=== PATIENT | female | born 1940 | race Two or more races ===

== ENCOUNTER 2021-04-10 15:42 | Inpatient (IN) | payer MEDICARE ==
--- NOTE | 2021-04-10 17:38 | ED ---
General Adult HPI - General Chief complaint: Recheck/Abnormal Lab/Rx Stated complaint: Abnormal Labs, Low Hemoglobin Time Seen by Provider: 04/10/21 17:04 Source: patient, RN notes reviewed Mode of arrival: ambulatory Limitations: physical limitation - History of Present Illness Initial comments: 80-year-old female presents to the emergency department accompanied by her daughter for evaluation of low hemoglobin. Patient states she received a phone call from her PCP informing her that her hemoglobin was 6.8 and instructed her to go to the emergency department. Patient states she had a fall resulting in a hip fracture on March 12. States she surgery at [facility] where she required 3 units of blood prior to surgery. Denies any complications after surgery but states within the last 3 days that she has begun to feel much better, has had improved energy level, and her stool has become brown. Was surprised to find that her hemoglobin, which was 9 earlier this [place], had dropped. States she has been ambulatory with her walker and is feeling markedly improved. Patient denies fever, chills, headache, dizziness, chest pain, shortness of breath, difficulty breathing, abdominal pain, constipation, diarrhea, dysuria, or hematuria. - Related Data Home Medications Medication Instructions Recorded Confirmed Apixaban [Eliquis] 2.5 mg PO BID 04/10/21 04/10/21 Ascorbic Acid [Vitamin C] 1,000 mg PO DAILY 04/10/21 04/10/21 Cholecalciferol [Vitamin D3 (25 50 mcg PO DAILY 04/10/21 04/10/21 Mcg = 1000 Iu)] Escitalopram [Lexapro] 5 mg PO DAILY 04/10/21 04/10/21 Ferrous Sulfate [Feosol] 325 mg PO Q48H 04/10/21 04/10/21 Midodrine HCl [ProAmantine] 2.5 mg PO TID 04/10/21 04/10/21 Vitamin B-12 Gummies 2 tab PO DAILY 04/10/21 04/10/21 Allergies Allergy/AdvReac Type Severity Reaction Status Date / Time No Known Allergies Allergy Verified 04/10/21 18:36 Review of Systems ROS Statement: Those systems with pertinent positive or pertinent negative responses have been documented in the HPI. ROS Other: All systems not noted in ROS Statement are negative. Past Medical History Past Medical History: Hypertension History of Any Multi-Drug Resistant Organisms: None Reported Past Surgical History: Orthopedic Surgery Additional Past Surgical History / Comment(s): hip sx Past Psychological History: No Psychological Hx Reported Smoking Status: Current every day smoker Past Alcohol Use History: Occasional Past Drug Use History: None Reported General Exam Limitations: physical limitation General appearance: alert, in no apparent distress, other (Well-developed, well- nourished female in no acute distress. Initial temperature 97.6, pulse 97, respirations 18, blood pressure 92/58, pulse ox 99% on room air.) Eye exam: Present: normal appearance, PERRL, EOMI. Absent: scleral icterus, conjunctival injection, periorbital swelling ENT exam: Present: normal exam, normal oropharynx, mucous membranes moist. Absent: mucous membranes dry Neck exam: Present: normal inspection. Absent: tenderness, meningismus, lymphadenopathy Respiratory exam: Present: normal lung sounds bilaterally. Absent: respiratory distress, wheezes, rales, rhonchi, stridor Cardiovascular Exam: Present: regular rate, normal rhythm, normal heart sounds. Absent: systolic murmur, diastolic murmur, rubs, gallop, clicks GI/Abdominal exam: Present: soft, normal bowel sounds. Absent: distended, tenderness, guarding, rebound, rigid Rectal exam: Present: normal inspection, normal rectal tone, heme (+) stool. Absent: black stool Extremities exam: Present: normal capillary refill, other (Incision scars on right hip appear well-healed). Absent: tenderness, pedal edema, joint swelling, calf tenderness Neurological exam: Present: alert, oriented X3, CN II-XII intact, other (Ambulatory with walker) Psychiatric exam: Present: normal affect, normal mood Skin exam: Present: warm, dry, intact, normal color. Absent: rash Course Vital Signs 04/10/21 04/10/21 04/10/21 16:34 16:55 22:27 Temperature 97.6 F Pulse Rate 97 91 84 Respiratory 18 20 16 Rate Blood Pressure 92/58 141/64 115/47 O2 Sat by Pulse 99 100 93 L Oximetry Medical Decision Making - Medical Decision Making 80-year-old female with recent history of right hip surgery presents to the emergency department for evaluation of low hemoglobin. Upon exam, patient is well-appearing and in no acute distress; she is not short of breath. Patient is afebrile, and not tachypneic nor tachycardic. No previous laboratory studies available at this facility, however patient and daughter provide reliable history. Laboratory studies were obtained showing hemoglobin 7.7, hematocrit 25.0. Patient is hyponatremic with a sodium of 126, however family states this is improved from last week when it was 123. Patient does have a urinary tract infection which is nitrite positive with large leukocyte esterase present. Patient's Hemoccult is positive, though stool is noted to be soft and brown. Patient requests to avoid transfer to another facility if at all possible. This patient's care was discussed with Dr. Petit who agrees to accept this admission; patient has been on Eliquis but it will be held per his request. Protonix will be initiated and patient will be placed on a clear liquid diet. UTI will be treated with antibiotics and hyponatremia will be monitored. I spoke with BESSIE Gu who agrees to accept this admission on behalf of [facility]. This patient's care was discussed with my attending Dr. Araujo. - Lab Data Result diagrams: 04/10/21 17:44 04/10/21 17:44 Lab Results 04/10/21 04/10/21 04/10/21 Range/Units 17:00 17:05 17:44 WBC 4.1 (3.8-10.6) k/uL RBC 2.43 L (3.80-5.40) m/uL Hgb 7.7 L (11.4-16.0) gm/dL Hct 25.0 L (34.0-46.0) % MCV 102.8 H (80.0-100.0) fL MCH 31.6 (25.0-35.0) pg MCHC 30.7 L (31.0-37.0) g/dL RDW 16.6 H (11.5-15.5) % Plt Count 375 (150-450) k/uL MPV 7.8 Neutrophils % 60 % Lymphocytes % 31 % Monocytes % 7 % Eosinophils % 1 % Basophils % 0 % Neutrophils # 2.4 (1.3-7.7) k/uL Lymphocytes # 1.3 (1.0-4.8) k/uL Monocytes # 0.3 (0-1.0) k/uL Eosinophils # 0.0 (0-0.7) k/uL Basophils # 0.0 (0-0.2) k/uL Hypochromasia Marked Poikilocytosis Slight Anisocytosis Slight Macrocytosis Moderate PT (9.0-12.0) sec INR (<1.2) APTT (22.0-30.0) sec Sodium (137-145) mmol/L Potassium (3.5-5.1) mmol/L Chloride (98-107) mmol/L Carbon Dioxide (22-30) mmol/L Anion Gap mmol/L BUN (7-17) mg/dL Creatinine (0.52-1.04) mg/dL Est GFR (CKD-EPI)AfAm (>60 ml/min/1.73 sqM) Est GFR (CKD-EPI)NonAf (>60 ml/min/1.73 sqM) Glucose (74-99) mg/dL Calcium (8.4-10.2) mg/dL Total Bilirubin (0.2-1.3) mg/dL AST (14-36) U/L ALT (4-34) U/L Alkaline Phosphatase (38-126) U/L Total Protein (6.3-8.2) g/dL Albumin (3.5-5.0) g/dL Stool Occult Blood (Negative) Blood Type O Positive Blood Type Confirm O Positive Blood Type Recheck No Previous Record Bld Type Recheck Status CABO Indicated Antibody Screen NEGATIVE Spec Expiration Date 04/13/2021 - 229904/10/21 04/10/21 04/10/21 Range/Units 17:44 17:44 17:44 WBC (3.8-10.6) k/uL RBC (3.80-5.40) m/uL Hgb (11.4-16.0) gm/dL Hct (34.0-46.0) % MCV (80.0-100.0) fL MCH (25.0-35.0) pg MCHC (31.0-37.0) g/dL RDW (11.5-15.5) % Plt Count (150-450) k/uL MPV Neutrophils % % Lymphocytes % % Monocytes % % Eosinophils % % Basophils % % Neutrophils # (1.3-7.7) k/uL Lymphocytes # (1.0-4.8) k/uL Monocytes # (0-1.0) k/uL Eosinophils # (0-0.7) k/uL Basophils # (0-0.2) k/uL Hypochromasia Poikilocytosis Anisocytosis Macrocytosis PT 9.6 (9.0-12.0) sec INR 0.9 (<1.2) APTT 25.9 (22.0-30.0) sec Sodium 126 L (137-145) mmol/L Potassium 3.5 (3.5-5.1) mmol/L Chloride 95 L (98-107) mmol/L Carbon Dioxide 20 L (22-30) mmol/L Anion Gap 11 mmol/L BUN 6 L (7-17) mg/dL Creatinine 0.44 L (0.52-1.04) mg/dL Est GFR (CKD-EPI)AfAm >90 (>60 ml/min/1.73 sqM) Est GFR (CKD-EPI)NonAf >90 (>60 ml/min/1.73 sqM) Glucose 100 H (74-99) mg/dL Calcium 8.3 L (8.4-10.2) mg/dL Total Bilirubin 0.5 (0.2-1.3) mg/dL AST 29 (14-36) U/L ALT 16 (4-34) U/L Alkaline Phosphatase 135 H (38-126) U/L Total Protein 5.7 L (6.3-8.2) g/dL Albumin 3.5 (3.5-5.0) g/dL Stool Occult Blood Positive H (Negative) Blood Type Blood Type Confirm Blood Type Recheck Bld Type Recheck Status Antibody Screen Spec Expiration Date - Radiology Data Radiology results: report reviewed, image reviewed Two-view chest x-ray was obtained. Report was repeated in its entirety. Impression per Dr. Senior is COPD. Interstitial changes likely chronic. No focal infiltrates seen. Disposition Clinical Impression: UTI (urinary tract infection), Anemia, GI bleed, Chronic hyponatremia Disposition: ADMITTED IP TO THIS [facility] Condition: Serious Decision Date: 04/10/21 Decision Time: 21:23
[2021-04-10 17:56] LABS: Anisocytosis Slight; Basophils % (A) 0 %; Eosinophils % (A) 1 %; HGB 7.7 gm/dL (11.4-16.0); Hypochromasia Marked; Lymphocytes # (A) 1.3 k/uL (1.0-4.8); Lymphocytes % (A) 31 %; MCH 31.6 pg (25.0-35.0); MCHC 30.7 g/dL (31.0-37.0); MCV 102.8 fL (80.0-100.0); Macrocytosis Moderate; Mean Platelet Volume 7.8; Monocytes # (A) 0.3 k/uL (0-1.0); Monocytes % (A) 7 %; Neutrophils # (A) 2.4 k/uL (1.3-7.7); Neutrophils % (A) 60 %; Platelet Count 375 k/uL (150-450); Poikilocytosis Slight; RBC 2.43 m/uL (3.80-5.40); RDW 16.6 % (11.5-15.5); WBC 4.1 k/uL (3.8-10.6)
[2021-04-10 18:05] LABS: ALT 16 U/L (4-34); AST 29 U/L (14-36); African American GFR (CKD) >90 (>60 ml/min/1.73 sqM); Albumin 3.5 g/dL (3.5-5.0); Alkaline Phosphatase 135 U/L (38-126); Anion Gap 11 mmol/L; Blood Urea Nitrogen 6 mg/dL (7-17); Calcium 8.3 mg/dL (8.4-10.2); Carbon Dioxide 20 mmol/L (22-30); Chloride 95 mmol/L (98-107); Glucose 100 mg/dL (74-99); Non-African American GFR(CKD) >90 (>60 ml/min/1.73 sqM); Potassium 3.5 mmol/L (3.5-5.1); Sodium 126 mmol/L (137-145); Total Bilirubin 0.5 mg/dL (0.2-1.3); Total Protein 5.7 g/dL (6.3-8.2)
[2021-04-10 18:13] LABS: INR 0.9 (<1.2); Partial Thromboplastin Time 25.9 sec (22.0-30.0); Prothrombin Time 9.6 sec (9.0-12.0)
--- NOTE | 2021-04-10 18:59 | XR ---
EXAMINATION TYPE: XR chest 2V DATE OF EXAM: 04/10/2021 COMPARISON: None HISTORY: 80-year-old female weakness TECHNIQUE: AP and lateral views FINDINGS: Heart normal size. Atherosclerotic arch calcifications. Hyperinflation. Interstitial prominence has a chronic appearance. Mild biapical pleural-parenchymal scarring. No camilo consolidation or pleural ef fusion. IMPRESSION: COPD. Interstitial changes likely chronic. No focal infiltrate seen.
[2021-04-10 19:01] LABS: Appearance,Urine Cloudy (Clear); Bacteria,Urine Occasional /hpf; Bilirubin,Urine Negative (Negative); Blood,Urine Negative (Negative); Color,Urine Yellow; Glucose,Urine (UA) Negative (Negative); Ketones,Urine Negative (Negative); Leukocyte Esterase,Urine Large (Negative); Mucus,Urine Rare /hpf; Nitrite,Urine Positive (Negative); PH, Urine 6.5 (5.0-8.0); Protein,Urine Negative (Negative); RBC,Urine 2 /hpf (0-5); Specific Gravity,Urine 1.009 (1.001-1.035); Squamous Epithelial Cell,Urine 1 /hpf (0-4); WBC,Urine 49 /hpf (0-5)
[2021-04-10] MEDS ORDERED: SODIUM CHLORIDE 0.9% 1,000 ML IV STA (20:20)
[2021-04-10] MEDS ORDERED: HYDROmorphone 0.5 MG/0.5 ML SYRINGE IVP PRN (21:13)
[2021-04-10] MEDS ORDERED: ONDANSETRON 4 MG/2 ML VIAL IVP PRN (21:13)
[2021-04-10] MEDS ORDERED: NALOXONE 0.4 MG/ML 1 ML VIAL IV PRN (21:13)
[2021-04-10] MEDS ORDERED: ACETAMINOPHEN TAB 325 MG TAB PO PRN (21:13)
[2021-04-10] MEDS ORDERED: TEMAZEPAM 15 MG CAP PO PRN (21:13)
[2021-04-11 07:39] LABS: Anisocytosis Slight; Basophils % (A) 0 %; Eosinophils % (A) 1 %; HCT 22.3 % (34.0-46.0); Hypochromasia Marked; Lymphocytes # (A) 1.4 k/uL (1.0-4.8); Lymphocytes % (A) 29 %; MCH 30.2 pg (25.0-35.0); MCHC 29.4 g/dL (31.0-37.0); MCV 102.6 fL (80.0-100.0); Macrocytosis Moderate; Mean Platelet Volume 7.6; Monocytes # (A) 0.3 k/uL (0-1.0); Monocytes % (A) 7 %; Neutrophils # (A) 2.8 k/uL (1.3-7.7); Neutrophils % (A) 59 %; Platelet Count 321 k/uL (150-450); Poikilocytosis Slight; RBC 2.17 m/uL (3.80-5.40); WBC 4.7 k/uL (3.8-10.6)
[2021-04-11 07:44] LABS: HGB 6.6 gm/dL (11.4-16.0)
[2021-04-11 07:45] LABS: African American GFR (CKD) >90 (>60 ml/min/1.73 sqM); Anion Gap 3 mmol/L; Blood Urea Nitrogen 3 mg/dL (7-17); Calcium 8.3 mg/dL (8.4-10.2); Carbon Dioxide 23 mmol/L (22-30); Chloride 101 mmol/L (98-107); Glucose 88 mg/dL (74-99); Non-African American GFR(CKD) >90 (>60 ml/min/1.73 sqM); Sodium 127 mmol/L (137-145)
[2021-04-11] MEDS: SODIUM CHLORIDE 0.9% 1,000 ML IV SCH ×3 (08:02→14:37)
[2021-04-11] MEDS: PANTOPRAZOLE 40 MG/10 ML VIAL IV SCH ×2 (09:37→20:39)
[2021-04-11] MEDS: ESCITALOPRAM 5 MG TAB PO SCH (09:38)
--- NOTE | 2021-04-11 13:18 | P.GSCN ---
History of Present Illness Consult date: 04/11/21 Reason for Consult: GI bleed, anemia History of present illness: This is a 72-year-old female who came into the emergency room for anemia. Britany liao is a history of GI bleed. Apparently she is seen 1 month ago at [facility] [place] for a hip fracture at that time she was anemic. Patient refuses EGD that time. She states she received 3 units of packed red cells. She has had some black stools over the last month. She denies a significant abdominal pain. Past Medical History Past Medical History: Hypertension Additional Past Medical History / Comment(s): Hypotension, low HGb, blood tranfusions, recent fall, fx hip History of Any Multi-Drug Resistant Organisms: None Reported Past Surgical History: Hysterectomy, Orthopedic Surgery Additional Past Surgical History / Comment(s): right hip sx 03/14/21 Past Anesthesia/Blood Transfusion Reactions: No Reported Reaction Past Psychological History: No Psychological Hx Reported Smoking Status: Current every day smoker, Heavy tobacco smoker Past Alcohol Use History: Occasional Additional Past Alcohol Use History / Comment(s): Starting smoking in 1962, smoked a pack/day, recently smoking 5 cig/day Past Drug Use History: None Reported - Past Family History Father Additional Family Medical History / Comment(s): at age 63, MD Brother(s) Additional Family Medical History / Comment(s): in 70s, MD Medications and Allergies Home Medications Medication Instructions Recorded Confirmed Type Apixaban [Eliquis] 2.5 mg PO BID 04/10/21 04/10/21 History Ascorbic Acid [Vitamin C] 1,000 mg PO DAILY 04/10/21 04/10/21 History Cholecalciferol [Vitamin D3 (25 50 mcg PO DAILY 04/10/21 04/10/21 History Mcg = 1000 Iu)] Escitalopram [Lexapro] 5 mg PO DAILY 04/10/21 04/10/21 History Ferrous Sulfate [Feosol] 325 mg PO Q48H 04/10/21 04/10/21 History Midodrine HCl [ProAmantine] 2.5 mg PO TID 04/10/21 04/10/21 History Vitamin B-12 Gummies 2 tab PO DAILY 04/10/21 04/10/21 History Allergies Allergy/AdvReac Type Severity Reaction Status Date / Time No Known Allergies Allergy Verified 04/10/21 18:36 Surgical - Exam Vital Signs Temp Pulse Resp BP Pulse Ox 97.6 F 97 18 92/58 99 04/10/21 16:34 04/10/21 16:34 04/10/21 16:34 04/10/21 16:34 04/10/21 16:34 - General well developed, well nourished, no distress - Eyes PERRL - ENT normal pinna - Neck no masses - Respiratory normal expansion - Cardiovascular Rhythm: regular - Abdomen Abdomen: soft, non tender Results - Labs 04/11/21 06:46 04/11/21 06:46 Abnormal Lab Results - Last 24 Hours (Table) 04/10/21 04/10/21 04/10/21 Range/Units 17:00 17:44 17:44 RBC 2.43 L (3.80-5.40) m/uL Hgb 7.7 L (11.4-16.0) gm/dL Hct 25.0 L (34.0-46.0) % MCV 102.8 H (80.0-100.0) fL MCHC 30.7 L (31.0-37.0) g/dL RDW 16.6 H (11.5-15.5) % Sodium (137-145) mmol/L Chloride (98-107) mmol/L Carbon Dioxide (22-30) mmol/L BUN (7-17) mg/dL Creatinine (0.52-1.04) mg/dL Glucose (74-99) mg/dL Calcium (8.4-10.2) mg/dL Alkaline Phosphatase (38-126) U/L Total Protein (6.3-8.2) g/dL Urine Appearance (Clear) Urine Nitrite (Negative) Ur Leukocyte Esterase (Negative) Urine WBC (0-5) /hpf Urine Bacteria (None) /hpf Urine Mucus (None) /hpf Stool Occult Blood Positive H (Negative) Crossmatch See Detail 04/10/21 04/10/21 04/11/21 Range/Units 17:44 Unknown 06:46 RBC 2.17 L (3.80-5.40) m/uL Hgb 6.6 L* (11.4-16.0) gm/dL Hct 22.3 L (34.0-46.0) % MCV 102.6 H (80.0-100.0) fL MCHC 29.4 L (31.0-37.0) g/dL RDW 17.0 H (11.5-15.5) % Sodium 126 L (137-145) mmol/L Chloride 95 L (98-107) mmol/L Carbon Dioxide 20 L (22-30) mmol/L BUN 6 L (7-17) mg/dL Creatinine 0.44 L (0.52-1.04) mg/dL Glucose 100 H (74-99) mg/dL Calcium 8.3 L (8.4-10.2) mg/dL Alkaline Phosphatase 135 H (38-126) U/L Total Protein 5.7 L (6.3-8.2) g/dL Urine Appearance Cloudy H (Clear) Urine Nitrite Positive H (Negative) Ur Leukocyte Esterase Large H (Negative) Urine WBC 49 H (0-5) /hpf Urine Bacteria Occasional H (None) /hpf Urine Mucus Rare H (None) /hpf Stool Occult Blood (Negative) Crossmatch 04/11/21 Range/Units 06:46 RBC (3.80-5.40) m/uL Hgb (11.4-16.0) gm/dL Hct (34.0-46.0) % MCV (80.0-100.0) fL MCHC (31.0-37.0) g/dL RDW (11.5-15.5) % Sodium 127 L (137-145) mmol/L Chloride (98-107) mmol/L Carbon Dioxide (22-30) mmol/L BUN 3 L (7-17) mg/dL Creatinine 0.48 L (0.52-1.04) mg/dL Glucose (74-99) mg/dL Calcium 8.3 L (8.4-10.2) mg/dL Alkaline Phosphatase (38-126) U/L Total Protein (6.3-8.2) g/dL Urine Appearance (Clear) Urine Nitrite (Negative) Ur Leukocyte Esterase (Negative) Urine WBC (0-5) /hpf Urine Bacteria (None) /hpf Urine Mucus (None) /hpf Stool Occult Blood (Negative) Crossmatch Microbiology - Last 24 Hours (Table) 04/10/21 Unknown Urine Culture - Preliminary Urine,Voided Diabetes panel 04/10/21 04/11/21 Range/Units 17:44 06:46 Sodium 126 L 127 L (137-145) mmol/L Potassium 3.5 4.0 (3.5-5.1) mmol/L Chloride 95 L 101 (98-107) mmol/L Carbon Dioxide 20 L 23 (22-30) mmol/L BUN 6 L 3 L (7-17) mg/dL Creatinine 0.44 L 0.48 L (0.52-1.04) mg/dL Glucose 100 H 88 (74-99) mg/dL Calcium 8.3 L 8.3 L (8.4-10.2) mg/dL AST 29 (14-36) U/L ALT 16 (4-34) U/L Alkaline Phosphatase 135 H (38-126) U/L Total Protein 5.7 L (6.3-8.2) g/dL Albumin 3.5 (3.5-5.0) g/dL Calcium panel 04/10/21 04/11/21 Range/Units 17:44 06:46 Calcium 8.3 L 8.3 L (8.4-10.2) mg/dL Albumin 3.5 (3.5-5.0) g/dL Pituitary panel 04/10/21 04/11/21 Range/Units 17:44 06:46 Sodium 126 L 127 L (137-145) mmol/L Potassium 3.5 4.0 (3.5-5.1) mmol/L Chloride 95 L 101 (98-107) mmol/L Carbon Dioxide 20 L 23 (22-30) mmol/L BUN 6 L 3 L (7-17) mg/dL Creatinine 0.44 L 0.48 L (0.52-1.04) mg/dL Glucose 100 H 88 (74-99) mg/dL Calcium 8.3 L 8.3 L (8.4-10.2) mg/dL Adrenal panel 04/10/21 04/11/21 Range/Units 17:44 06:46 Sodium 126 L 127 L (137-145) mmol/L Potassium 3.5 4.0 (3.5-5.1) mmol/L Chloride 95 L 101 (98-107) mmol/L Carbon Dioxide 20 L 23 (22-30) mmol/L BUN 6 L 3 L (7-17) mg/dL Creatinine 0.44 L 0.48 L (0.52-1.04) mg/dL Glucose 100 H 88 (74-99) mg/dL Calcium 8.3 L 8.3 L (8.4-10.2) mg/dL Total Bilirubin 0.5 (0.2-1.3) mg/dL AST 29 (14-36) U/L ALT 16 (4-34) U/L Alkaline Phosphatase 135 H (38-126) U/L Total Protein 5.7 L (6.3-8.2) g/dL Albumin 3.5 (3.5-5.0) g/dL Assessment and Plan Assessment: J bleed. Patient will undergo EGD tonight for possible peptic ulcer. Or upper GI bleed source. We will schedule this for tomorrow. If this is negative she will need colonoscopy.
[2021-04-11] MEDS ORDERED: HYDROcodone/APAP 5-325MG 1 EACH TAB PO PRN (14:49)
--- NOTE | 2021-04-11 15:48 | HP ---
HISTORY AND PHYSICAL I am covering for Dr. Oro. DATE OF SERVICE: 04/11/2021 CHIEF COMPLAINT: Anemia. HISTORY OF PRESENT ILLNESS: This 80-year-old woman with a past medical history of multiple medical problems, including hypertension, history of blood transfusion, hysterectomy, history of DJD, being followed by Dr. Tammi Oro in the outpatient setting, recently had a hip fracture which was treated in [facility]. Patient apparently had some melena during that time, but after the hip fracture the patient was started on prophylactic Eliquis and sent home. Currently the patient does present with significant weakness and hemoglobin was found to be 6.8. Patient is admitted for further evaluation and treatment. The patient apparently had 3 units transfusion prior to surgery. There is no history of any fever, rigors or chills. No history of headache, loss of consciousness, seizures. The hemoglobin was found to be 7.7 and 6.6. One unit of transfusion is being arranged. Surgery is planning EGD at this time. Patient also had features of UTI. PAST MEDICAL HISTORY: Recent hip surgery, hypertension, hypotension, transfusions, recent fall. HOME MEDICATIONS: Vitamin B12, cholecalciferol, iron sulfate, vitamin C, ProAmatine, Lexapro, Eliquis. ALLERGIES: NONE. FAMILY HISTORY: History of myocardial infarction in the family. SOCIAL HISTORY: History of smoking; heavy tobacco usage. REVIEW OF SYSTEMS: ENT: As mentioned earlier. CARDIOVASCULAR SYSTEM: No angina, palpitations. RESPIRATORY SYSTEM: As mentioned earlier. GI: No nausea, vomiting, diarrhea. : No dysuria. NERVOUS SYSTEM: No numbness, weakness. ALLERGY/IMMUNOLOGY: No asthma or hay fever. MUSCULOSKELETAL: As mentioned earlier. HEMATOLOGY/ONCOLOGY: As mentioned earlier. ENDOCRINE: As mentioned earlier. CONSTITUTIONAL: As mentioned earlier. DERMATOLOGY: Negative. RHEUMATOLOGY: Negative. PSYCHIATRY: As mentioned earlier. PHYSICAL EXAMINATION: Patient is alert, oriented x3. Pulse is 75, blood pressure 118/47, respiration 18, temperature 98.7, pulse ox 93% on room air. HEENT: Conjunctivae pale. Oral mucosa moist. CARDIOVASCULAR: S1, S2 muffled. NECK: No jugular venous distention. RESPIRATION: Breath sounds diminished at the bases. A few scattered rhonchi. ABDOMEN: Soft, nontender. No mass palpable. LEGS: No edema. No swelling. NERVOUS SYSTEM: Higher functions as mentioned earlier. Moves all 4 limbs. No focal motor or sensory deficit. LYMPHATICS: No lymph node palpable in neck, axillae or groin. SKIN: No ulcer, rash, bleeding. JOINTS: No active deforming arthropathy. LABS: WBC 4.6, hemoglobin 6.6, MCV 102.6, sodium and UA noted. Stool OB is positive, COVID-19 is negative. The chest x-ray which was reviewed personally by me at the time of admission showed interstitial changes, likely chronic. ASSESSMENT: 1. Anemia, possibly acute on chronic blood-loss anemia. Rule out peptic ulcer disease. Status post transfusions. 2. History of recent right hip fracture and surgery. 3. Hypertension. 4. History of hypotension and transfusions. 5. History of hysterectomy. 6. History of degenerative joint disease. 7. History of nicotine dependence. 8. Mild protein-calorie malnutrition with BMI of 19.9. 9. FULL CODE. RECOMMENDATIONS AND DISCUSSION: In this 80-year-old woman who presented with multiple complex medical issues, at this time I recommend at least one more unit of transfusion. Repeat hemoglobin. If the hemoglobin is less than 8, I would transfuse again. Continue to monitor. Type and cross two units. IV fluids. Surgical evaluation. Possible EGD. Guarded prognosis because of multiple complex medical issues. IV Protonix. Hold anticoagulants and antiplatelet agents for now. Prognosis guarded because of multiple complex medical issues. Further recommendations to follow. A copy of this dictation is being forwarded to Dr. Oro, who is the primary physician. MMEDUARDOL / HALIEN: [id number] / PARVIN
[2021-04-11] MEDS: NICOTINE 14MG/24HR PATCH TRANSDERM SCH (16:35)
[2021-04-11 19:10] LABS: Anisocytosis Slight; Basophils % (A) 0 %; Eosinophils % (A) 1 %; HCT 27.9 % (34.0-46.0); Hypochromasia Marked; Lymphocytes # (A) 1.6 k/uL (1.0-4.8); Lymphocytes % (A) 42 %; MCH 30.2 pg (25.0-35.0); MCHC 30.4 g/dL (31.0-37.0); MCV 99.5 fL (80.0-100.0); Macrocytosis Slight; Monocytes # (A) 0.2 k/uL (0-1.0); Monocytes % (A) 6 %; Neutrophils # (A) 1.9 k/uL (1.3-7.7); Neutrophils % (A) 48 %; Platelet Count 290 k/uL (150-450); Poikilocytosis Moderate; WBC 3.9 k/uL (3.8-10.6)
[2021-04-11 19:12] LABS: HGB 8.5 gm/dL (11.4-16.0)
[2021-04-11] MEDS: ALPRAZolam 0.25 MG TAB PO PRN (20:38)
[2021-04-12 06:26] LABS: Anisocytosis Slight; Basophils % (A) 0 %; Eosinophils % (A) 1 %; HCT 26.7 % (34.0-46.0); HGB 8.4 gm/dL (11.4-16.0); Hypochromasia Marked; Lymphocytes # (A) 1.5 k/uL (1.0-4.8); Lymphocytes % (A) 40 %; MCH 31.3 pg (25.0-35.0); MCHC 31.5 g/dL (31.0-37.0); MCV 99.2 fL (80.0-100.0); Macrocytosis Slight; Mean Platelet Volume 7.8; Monocytes # (A) 0.3 k/uL (0-1.0); Monocytes % (A) 8 %; Neutrophils # (A) 1.8 k/uL (1.3-7.7); Neutrophils % (A) 48 %; Platelet Count 271 k/uL (150-450); Poikilocytosis Moderate; RBC 2.69 m/uL (3.80-5.40); RDW 16.6 % (11.5-15.5); WBC 3.7 k/uL (3.8-10.6)
[2021-04-12] MEDS ORDERED: PROPOFOL 10 MG/ML 20 ML VIAL IV ONE (07:20)
[2021-04-12] MEDS ORDERED: LACTATED RINGERS 1,000 ML IV ONE (08:12)
--- NOTE | 2021-04-12 08:46 | P.OP ---
Date of Procedure: 04/12/21 Preoperative Diagnosis: GI bleed Postoperative Diagnosis: Minimal gastritis. No evidence of upper GI bleed Procedure(s) Performed: EGD Anesthesia: MAC Surgeon: Narciso Petit Pathology: none sent Condition: stable Disposition: PACU Description of Procedure: The patient's placed on the endoscopy table in the lateral position. She received IV sedation. The gastroscope placed oropharynx passed in the esophagus into the stomach. Scope was then placed through the pylorus. The first and second portion of the duodenum appeared normal. Scope was brought back the antrum this was mildly inflamed. There is known to blood. The scope was retroflexed the remainder of the stomach appeared normal. The GE junction was at 40 cm. The distal esophagus appeared normal. The proximal esophagus. Scope withdrawn for patient. There is no evidence of any upper GI bleed. Patient will be scheduled for colon oscopy on Wednesday
[2021-04-12] MEDS ORDERED: PEG 3350-NA SULF,BICARB,CL/KCL 4,000 ML BOTTLE PO ONE (09:00)
[2021-04-12 09:08] LABS: African American GFR (CKD) 107.4 (60.0-200.0); Anion Gap 8.3 mmol/L (10.00-18.00); BUN/Creat Ratio 5.2 Ratio (12.00-20.00); Blood Urea Nitrogen 2.6 mg/dL (9.0-27.0); Calcium 8.3 mg/dL (8.7-10.3); Carbon Dioxide 23.7 mmol/L (20.0-27.5); Non-African American GFR(CKD) 92.7 (60.0-200.0); Potassium 3.7 mmol/L (3.5-5.5)
[2021-04-12] MEDS: PANTOPRAZOLE 40 MG/10 ML VIAL IV SCH ×2 (09:15→20:49)
[2021-04-12] MEDS: ESCITALOPRAM 5 MG TAB PO SCH (09:15)
[2021-04-12] MEDS: NICOTINE 14MG/24HR PATCH TRANSDERM SCH (09:15)
[2021-04-12] MEDS: SODIUM CHLORIDE 0.9% 1,000 ML IV SCH (11:27)
--- NOTE | 2021-04-12 17:46 | PN ---
PROGRESS NOTE DATE OF SERVICE: 04/12/2021 I am covering for Dr. Oro. DATE OF SERVICE: This 80-year-old woman was admitted with anemia and as well as acute blood loss anemia, received one unit of transfusion. Hemoglobin is 8.[address] Petit is planning colonoscopy. The EGD showed only minimal gastritis. PHYSICAL EXAMINATION: Alert and oriented x3. Pulse is 81, blood pressure 115/72, respiration 18, temperature 98 degrees, pulse ox 98% on room air. HEENT: Conjunctivae normal. Oral mucosa moist. NECK: No jugular venous distention. No lymph node enlargement. CARDIOVASCULAR: S1, S2, muffled. No S3, no S4, RESPIRATORY: Diminished breath sounds at the bases. No rhonchi, no crackles. ABDOMEN: Soft, nontender. No mass palpable. LEGS: No edema, no swelling. NERVOUS SYSTEM: No focal deficits. LABS: Hemoglobin 8.4, sodium 134. ASSESSMENT: 1. Anemia, possibly acute on chronic blood-loss anemia status post EGD showing only acute gastritis, status post blood transfusion. 2. Hyponatremia. 3. History of recent right hip fracture and surgery. 4. Hypertension. 5. History of hypotension and transfusions. 6. History hysterectomy. 7. History of degenerative joint disease. 8. History of nicotine dependence. 9. Mild protein-calorie malnutrition, BMI of 19.9. 10.FULL CODE. RECOMMENDATIONS AND DISCUSSION: Recommend to continue current management, continue symptomatic treatment. Repeat labs. Otherwise, closely follow with surgery for possible colonoscopy. Guarded prognosis because of the multiple complex medical issues and further recommendations to follow. MMODL / IJN: [id number] /
[2021-04-12] MEDS: ALPRAZolam 0.25 MG TAB PO PRN (20:50)
[2021-04-13] MEDS: SODIUM CHLORIDE 0.9% 1,000 ML IV SCH (05:46)
[2021-04-13] MEDS: NICOTINE 14MG/24HR PATCH TRANSDERM SCH (07:36)
[2021-04-13] MEDS: ESCITALOPRAM 5 MG TAB PO SCH (07:36)
[2021-04-13] MEDS: PANTOPRAZOLE 40 MG/10 ML VIAL IV SCH ×2 (07:36→21:08)
[2021-04-13 08:07] LABS: Anisocytosis Slight; Basophils % (A) 0 %; Eosinophils # (A) 0.1 k/uL (0-0.7); Eosinophils % (A) 2 %; HCT 28.1 % (34.0-46.0); HGB 8.7 gm/dL (11.4-16.0); Hypochromasia Marked; Lymphocytes # (A) 1.3 k/uL (1.0-4.8); Lymphocytes % (A) 40 %; MCH 30.9 pg (25.0-35.0); MCHC 30.8 g/dL (31.0-37.0); MCV 100.1 fL (80.0-100.0); Macrocytosis Slight; Mean Platelet Volume 7.5; Monocytes # (A) 0.3 k/uL (0-1.0); Monocytes % (A) 9 %; Neutrophils # (A) 1.5 k/uL (1.3-7.7); Neutrophils % (A) 46 %; Platelet Count 276 k/uL (150-450); Poikilocytosis Moderate; RBC 2.81 m/uL (3.80-5.40); RDW 16.3 % (11.5-15.5); WBC 3.2 k/uL (3.8-10.6)
[2021-04-13 11:34] LABS: African American GFR (CKD) 115.6 (60.0-200.0); Blood Urea Nitrogen <2 mg/dL (9.0-27.0); Calcium 8.4 mg/dL (8.7-10.3); Carbon Dioxide 23.4 mmol/L (20.0-27.5); Chloride 102 mmol/L (96-109); Glucose 86 mg/dL (70-110); Non-African American GFR(CKD) 99.8 (60.0-200.0); Potassium 3.7 mmol/L (3.5-5.5); Sodium 134 mmol/L (135-145)
--- NOTE | 2021-04-13 11:51 | P.PN ---
Progress Note - Text Progress Note Date: 04/13/21 The patient has not shown any further evidence of GI bleed. She will remain on clear liquid diet. We'll start her bowel prep and plan for endoscopy on Wednesday
--- NOTE | 2021-04-13 17:38 | PN ---
PROGRESS NOTE DATE OF SERVICE: 04/13/2021 This 80-year-old woman was admitted with anemia, is being evaluated for colonoscopy by Dr. Petit tomorrow. EGD done only showed mild gastritis. No chest pain. No palpitations. No fever. Hemoglobin is improved to 8.7. PHYSICAL EXAMINATION: Alert and oriented x3. Pulse is 72, blood pressure 120/69, respirations 16, temperature 97.2, pulse ox 98% on room air. HEENT: Conjunctivae normal. Oral mucosa moist. NECK: No jugular venous distention. No lymph node enlargement. CARDIOVASCULAR: S1, S2, muffled. No S3, no S4, RESPIRATORY: Diminished breath sounds at the bases. A few scattered rhonchi. ABDOMEN: Soft, nontender. LEGS: No edema, no swelling. NERVOUS SYSTEM: No focal deficits. LAB: Hemoglobin 8.2, white count 3.2, sodium 134. ASSESSMENT: 1. Anemia, possibly acute on chronic blood-loss anemia status post EGD showing only acute gastritis status post blood transfusion. 2. Hyponatremia. 3. History of recent right hip fracture surgery. 4. Hypertension. 5. History of hypotension and transfusion. 6. History of hysterectomy. 7. History of degenerative joint disease. 8. History of nicotine dependence. 9. Mild protein-calorie malnutrition, BMI of 19.9. 10.FULL CODE. RECOMMENDATIONS: Recommend to continue current management and symptomatic treatment. Otherwise, EGD findings noted. Dr. Petit to follow. Patient is receiving preparation colonoscopy and Dr. Oro will follow tomorrow. MMODL / IJN: [id number] /
[2021-04-13] MEDS: ALPRAZolam 0.25 MG TAB PO PRN (21:08)
[2021-04-14] MEDS: SODIUM CHLORIDE 0.9% 1,000 ML IV SCH (01:21)
[2021-04-14] MEDS: ESCITALOPRAM 5 MG TAB PO SCH (08:29)
[2021-04-14] MEDS: NICOTINE 14MG/24HR PATCH TRANSDERM SCH (08:29)
[2021-04-14] MEDS: PANTOPRAZOLE 40 MG/10 ML VIAL IV SCH ×2 (08:30→21:28)
[2021-04-14 11:43] LABS: HCT 28.8 % (34.0-46.0); HGB 9.1 gm/dL (11.4-16.0); Hypochromasia Marked; MCHC 31.4 g/dL (31.0-37.0); MCV 98.8 fL (80.0-100.0); Macrocytosis Slight; Mean Platelet Volume 7.8; Platelet Count 293 k/uL (150-450); Poikilocytosis Moderate; RBC 2.92 m/uL (3.80-5.40); RDW 15.9 % (11.5-15.5); WBC 3.3 k/uL (3.8-10.6)
[2021-04-14] MEDS ORDERED: IV FLUID CONTINUATION 1,000 ML IV ONE (14:39)
[2021-04-14] MEDS ORDERED: LIDOCAINE 1% INJ 10MG/ML (20 ML MDV) ONE (14:42)
[2021-04-14] MEDS ORDERED: PROPOFOL 10 MG/ML 20 ML VIAL IV ONE (14:42)
--- NOTE | 2021-04-14 14:55 | P.PN ---
Subjective Progress Note Date: 04/14/21 This is a 72-year-old female admitted with anemia, recent hip fracture with repair, status post 3 units of packed RBCs postop and multiple other medical issues. Evaluated by surgery, EGD completed reporting minimal gastritis with no evidence of upper GI bleed.Scheduled for colonoscopy today, completed prep. Hemoglobin 9.1. Denies further rectal bleeding, no black stools. Maintained on Rocephin for acute E. coli UTI. Afebrile, WBC 3.3 Denies nausea vomiting. Denies abdominal pain. Denies lightheadedness or dizziness. Denies chest pain, palpitations or shortness of breath. Objective - Vital Signs Vital signs: Vital Signs Temp 98.1 F 04/14/21 11:18 Pulse 78 04/14/21 11:18 Resp 18 04/14/21 11:18 BP 123/61 04/14/21 11:18 Pulse Ox 95 04/14/21 11:18 Intake & Output 04/13/21 04/14/21 04/14/21 18:59 06:59 18:59 Intake Total 600 650 Balance 600 650 Intake: Intake, IV Titration 600 650 Amount Sodium Chloride 0.9% 1, 600 600 000 ml @ 50 mls/hr IV . Q20H SHAHANA Rx#:[id number] cefTRIAXone 1 gm In 50 Sodium Chloride 0.9% 50 ml @ 100 mls/hr IVPB Q24HR SHAHANA Rx#:[id number] Oral 0 Other: Voiding Method Toilet Toilet # Voids 6 2 # Bowel Movements 10 4 - Exam PHYSICAL EXAM: VITAL SIGNS: As above GENERAL: Sitting up in bed, no acute distress HEENT: Conjunctivae normal. eyes normal. NECK: No JVD. No thyroid enlargement. No LNs CARDIOVASCULAR: S1, S2 regular. No murmur RESPIRATION: Breath sounds diminished in the bases. No rhonchi or crackles. No bronchial breathing. ABDOMEN: Soft, nontender . No guarding. no masses palpable. No ascites, No hepatosplenomegaly.Bowel sounds heard. LEGS: No edema. no swelling PSYCHIATRY: Alert and oriented X3, mood and affect normal. NERVOUS SYSTEM: Cranial N 2-12 grossly normal. Moves all 4 limbs.No focal deficits. Strength and sensation grossly intact.. Skin: Warm and dry, no rash - Labs CBC & Chem 7: 04/14/21 10:26 04/13/21 06:50 Labs: Abnormal Lab Results - Last 24 Hours (Table) 04/13/21 04/14/21 Range/Units 06:50 10:26 WBC 3.3 L (3.8-10.6) k/uL RBC 2.92 L (3.80-5.40) m/uL Hgb 9.1 L (11.4-16.0) gm/dL Hct 28.8 L (34.0-46.0) % RDW 15.9 H (11.5-15.5) % BUN <2 L (9.0-27.0) mg/dL Assessment and Plan Assessment: Anemia, possibly acute on chronic blood loss, status post transfusion of 1 unit of packed RBCs. EGD reporting mild gastritis. Hyponatremia Recent hip fracture repair, status post fall, requiring 3 units of packed RBCs postop History of hypotension Hypertension Mild protein calorie malnutrition, BMI 19.9 Current nicotine dependence Plan: Continue on current medication regime ,monitoring and symptomatic treatment. Maintain PPI. Close monitoring of hemoglobin.gentle IV fluid hydration, NPO, scheduled for colonoscopy today. Discharge planning pending colonoscopy results/surgeries clearance. The impression and plan of care has been dictated as directed. : I performed a history and examination of this patient, discussed the same with the dictator. I agree with the dictator's note ,documented as a scribe. Any additional findings or plans will be noted.
--- NOTE | 2021-04-14 15:00 | P.OP ---
Date of Procedure: 04/14/21 Preoperative Diagnosis: GI bleed Postoperative Diagnosis: Mild diverticulosis No evidence of lower GI bleed Procedure(s) Performed: Colonoscopy Anesthesia: MAC Surgeon: Narciso Petit Pathology: none sent Condition: stable Disposition: PACU Description of Procedure: Patient's placed on the endoscopy table in the lateral position. She received IV sedation. Digital rectal exam was performed which revealed no abnormalities. Flexible colonoscope was then placed patient anus passed throughout the entire colon. The ileocecal valve was visualized. The cecum, ascending and transverse colon appeared normal. In the descending and; a few scattered diverticula. Scope was brought back the rectum this appeared normal. Scope withdrawn for patient. There is no evidence of any lower GI bleed.
[2021-04-14] MEDS: ALPRAZolam 0.25 MG TAB PO PRN (21:28)
[2021-04-15] MEDS: SODIUM CHLORIDE 0.9% 1,000 ML IV SCH (03:57)
[2021-04-15 04:47] VITALS: BP 121/66; PULSE 84; RESP 18; TEMP 97.7
[2021-04-15] MEDS: NICOTINE 14MG/24HR PATCH TRANSDERM SCH (09:44)
[2021-04-15] MEDS: PANTOPRAZOLE 40 MG/10 ML VIAL IV SCH (09:48)
[2021-04-15] MEDS: ESCITALOPRAM 5 MG TAB PO SCH (09:48)
--- NOTE | 2021-04-15 11:40 | P.PN ---
Subjective Progress Note Date: 04/15/21 CHIEF COMPLAINT: Anemia, GI bleed HISTORY OF PRESENT ILLNESS: Patient is status post EGD and colonoscopy. Patient reports no further black stools. Denies abdominal pain. She is tolerating diet. Denies any nausea or vomiting. Hemoglobin yesterday had increased from 8.7 to 9.1 she is scheduled for discharge today PHYSICAL EXAM: VITAL SIGNS: Reviewed. GENERAL: Well-developed in no acute distress. HEENT: No sclera icterus. Extraocular movements grossly intact. Moist buccal mucosa. Head is atraumatic, normocephalic. ABDOMEN: Soft. Nondistended. Nontender. NEUROLOGIC: Alert and oriented. Cranial nerves II through XII grossly intact. ASSESSMENT: 1. Anemia status post EGD demonstrating mild gastritis and status post colonoscopy showing mild diverticulosis no evidence of bleeding noted on endoscopy PLAN: -Patient can be discharged surgical standpoint -Continue PPI Physician Preparer Samples And Rep[employer] note has been reviewed by physician. Signing provider agrees with the documented findings, assessment, and plan of care. Objective - Vital Signs Vital signs: Vital Signs Temp 97.7 F 04/15/21 03:45 Pulse 84 04/15/21 03:45 Resp 18 04/15/21 03:45 BP 121/66 04/15/21 03:45 Pulse Ox 91 L 04/15/21 03:45 Intake & Output 04/14/21 04/15/21 04/15/21 18:59 06:59 18:59 Intake Total 50 540 Balance 50 540 Intake: IV 50 Oral 540 Other: Voiding Method Toilet Toilet Toilet - Labs CBC & Chem 7: 04/14/21 10:26 04/13/21 06:50 Labs: Abnormal Lab Results - Last 24 Hours (Table) 04/14/21 Range/Units 10:26 WBC 3.3 L (3.8-10.6) k/uL RBC 2.92 L (3.80-5.40) m/uL Hgb 9.1 L (11.4-16.0) gm/dL Hct 28.8 L (34.0-46.0) % RDW 15.9 H (11.5-15.5) %
--- NOTE | 2021-04-15 14:13 | P.DS ---
Providers Date of admission: 04/11/21 14:08 Expected date of discharge: 04/15/21 Attending physician: Chuy Oro MD Consults: 04/10/21 21:16 Consult Physician Urgent Consulting Provider: Narciso Petit Consult Reason/Comments: hemoccult +, anemia Do you want consulting provider notified?: Yes, Notify in am Primary care physician: Grecia Araujo Hospital Course: Final Diagnoses: Anemia, possibly acute on chronic blood loss, status post transfusion of 1 unit of packed RBCs, suspect related to diverticular bleed. EGD reporting mild gastritis. Colonoscopy reporting mild gastritis, mild diverticulosis, no evidence of bleeding. Acute UTI with E. coli Hyponatremia, improving Recent hip fracture repair, status post fall, requiring 3 units of packed RBCs postop History of hypotension Hypertension Mild protein calorie malnutrition, BMI 19.9 Current nicotine dependence Hospital course:This is a 72-year-old female admitted with anemia, recent hip fracture with repair, status post 3 units of packed RBCs postop and multiple other medical issues. Evaluated by surgery, EGD completed reporting minimal gastritis with no evidence of upper GI bleed.Scheduled for colonoscopy today, completed prep. Hemoglobin 9.1. Denies further rectal bleeding, no black stools. Maintained on Rocephin for acute E. coli UTI. Afebrile, WBC 3.3 Denies nausea vomiting. Denies abdominal pain. Denies lightheadedness or dizziness. Denies chest pain, palpitations or shortness of breath. Yesterday completed colonoscopy reporting mild gastritis, mild diverticulosis with no evidence of bleeding. Tolerated procedure well. No signs or symptoms of bleeding. Hemoglobin increased to 9.1, platelets 293. Tolerating diet with no nausea vomiting or diarrhea. Denies rectal bleeding. Denies dark stools. Denies abdominal pain. Vital signs stable. Denies lightheadedness or dizziness. Denies chest pain or palpitations. Denies shortness of breath. Patient will be discharged home today in stable condition with guarded prognosis pending final DC recommendations/resuming Eliquis and clearance per surgery. The impression and plan of care has been dictated as directed. : I performed a history and examination of this patient, discussed the same with the dictator. I agree with the dictator's note ,documented as a scribe. Any additional findings or plans will be noted. Patient Condition at Discharge: Stable Plan - Discharge Summary Discharge Rx Participant: No New Discharge Prescriptions: New Cefuroxime Axetil [Ceftin] 500 mg PO BID 3 Days #6 tab Nicotine 14Mg/24Hr Patch [Habitrol] 1 patch TRANSDERM DAILY patch Pantoprazole Sodium [Protonix] 40 mg PO DAILY #14 tab Continue Cholecalciferol [Vitamin D3 (25 Mcg = 1000 Iu)] 50 mcg PO DAILY Ferrous Sulfate [Iron (65 MG Elemental)] 325 mg PO Q48H Ascorbic Acid [Vitamin C] 1,000 mg PO DAILY Apixaban [Eliquis] 2.5 mg PO BID Vitamin B-12 Gummies 2 tab PO DAILY Midodrine HCl [ProAmantine] 2.5 mg PO TID Escitalopram [Lexapro] 5 mg PO DAILY Discharge Medication List Apixaban [Eliquis] 2.5 mg PO BID 04/10/21 [History] Ascorbic Acid [Vitamin C] 1,000 mg PO DAILY 04/10/21 [History] Cholecalciferol [Vitamin D3 (25 Mcg = 1000 Iu)] 50 mcg PO DAILY 04/10/21 [History] Escitalopram [Lexapro] 5 mg PO DAILY 04/10/21 [History] Ferrous Sulfate [Iron (65 MG Elemental)] 325 mg PO Q48H 04/10/21 [History] Midodrine HCl [ProAmantine] 2.5 mg PO TID 04/10/21 [History] Vitamin B-12 Gummies 2 tab PO DAILY 04/10/21 [History] Cefuroxime Axetil [Ceftin] 500 mg PO BID 3 Days #6 tab 04/15/21 [Rx] Nicotine 14Mg/24Hr Patch [Habitrol] 1 patch TRANSDERM DAILY patch 04/15/21 [Rx] Pantoprazole Sodium [Protonix] 40 mg PO DAILY #14 tab 04/15/21 [Rx] Follow up Appointment(s)/Referral(s): Richardson Dial [NON-STAFF] - 1 Week Grecia Araujo DO [Primary Care Provider] - 04/29/21 10:45 am Narciso Petit MD [STAFF PHYSICIAN] - 1 Week Ambulatory/Diagnostic Orders: Complete Blood Count w/diff [LAB.AMB] Time Frame: 2 Weeks, Location: None Selected Patient Instructions/Handouts: Cefuroxime (By mouth), Pantoprazole (By mouth), How to Stop Smoking (DC), Urinary Tract Infection in Women (DC), High Fiber Diet (DC), Anemia (DC), Fall Prevention (DC) Activity/Diet/Wound Care/Special Instructions: Increase fiber in diet. Use caution with ambulation-safety awareness. Discharge Disposition: HOME WITH HOME HEALTH SERVICES
== END 2021-04-15 13:51 | disposition home health service (06) | DRG 378 ==
LOC: EC 15:42 → 5NMEDONC 21:35 → OBSVTOIN 04-11 14:08 → 5NMEDONC 04-11 17:59
PROVIDERS: ADMIT Family Medicine; ATTEND Family Medicine
PROC: 30233N1 Transfusion of Nonautologous Red Blood Cells into Peripheral Vein, Percutaneous Approach (ICD-10-PCS; 2021-04-11)
PROC: 0DJ08ZZ Inspection of Upper Intestinal Tract, Via Natural or Artificial Opening Endoscopic (ICD-10-PCS; principal; 2021-04-12 08:00)
PROC: 0DJD8ZZ Inspection of Lower Intestinal Tract, Via Natural or Artificial Opening Endoscopic (ICD-10-PCS; 2021-04-14)
DX: K57.31 Diverticulosis of large intestine without perforation or abscess with bleeding (principal); D62 Acute posthemorrhagic anemia; E44.1 Mild protein-calorie malnutrition; E87.1 Hypo-osmolality and hyponatremia; N39.0 Urinary tract infection, site not specified; Z68.1 Body mass index [BMI] 19.9 or less, adult; K29.70 Gastritis, unspecified, without bleeding; I10 Essential (primary) hypertension; B96.20 Unspecified Escherichia coli [E. coli] as the cause of diseases classified elsewhere; F17.210 Nicotine dependence, cigarettes, uncomplicated; Z79.01 Long term (current) use of anticoagulants; Z79.899 Other long term (current) drug therapy; Z82.49 Family history of ischemic heart disease and other diseases of the circulatory system; Z90.710 Acquired absence of both cervix and uterus; I95.9 Hypotension, unspecified; Z20.822 Contact with and (suspected) exposure to COVID-19; Z98.890 Other specified postprocedural states; Z87.81 Personal history of (healed) traumatic fracture
CPT/HCPCS: 36415; 43235; 45378; 71046; 80048; 80053; 81001; 82272; 85025; 85027; 85610; 85730; 86850; 86900; 86901; 86920; 87077; 87086; 87186; 87635; 96374; 99285

== ENCOUNTER → 2022-09-09 | Outpatient (CLI) | payer MEDICARE ==
--- NOTE | 2022-09-10 12:10 | MR ---
EXAMINATION TYPE: MR lumbar spine wo/w con DATE OF EXAM: 09/09/2022 5:24 PM COMPARISON: None. CLINICAL INDICATION:Female, 81 years old with history of M43.9, Low back pain TECHNIQUE: Multi planar, multi sequence imaging was performed utilizing: T1-weighted, T2-weighted, a nd turbo inversion recovery imaging of the lumbar spine. IV Contrast: 5.5 cc Gadavist. None. FINDINGS: Alignment: L4 vertebral body compression fracture. The remainder of the vertebral bodies heights are intact. Alignment is slightly straightened. Cord: The conus medullaris and the distal spinal cord appear unremarkable with regards to their signa l intensity and morphology. Bones/Discs: Abnormal bony edema involving L4 vertebral body with curvilinear low T1 and low T2 line near the superior endplate. There is associated high inversion recovery signal within the L4 vertebra l body. There is at least 25% height loss of this vertebral body with mild retropulsion up to 3 mm serrano ggested. Remainder of the osseous structures demonstrate mild degeneration changes minimal osteophyte formation. Some reactive postcontrast enhancement noted at the level of the fracture. High T1 signal posterior to the vertebral body at this level could represent blood products on fat saturation seque nces. This area measures roughly T1-weighted imaging 1.4 x 0.3 x 1.8 cm. (CC, AP, TV) T12-L1: No evidence of significant spinal canal stenosis or neural foraminal stenosis. L1-L2: No evidence of significant spinal canal stenosis or neural foraminal stenosis. L2-L3: Disc bulge and facet joint arthropathy result in mild spinal canal and mild bilateral neural f oraminal stenosis. L3-L4: Acute/subacute fracture of the L4 vertebral body with mild retropulsion results in severe spi nal canal stenosis and moderate to severe bilateral neural foraminal stenosis. Suspected epidural flu id collection likely blood products which is high T1 signal on fat saturated T1-weighted sagittal ameena ging measuring 1.4 x 0.3 x 1.8 cm. (CC, AP, TV). L4-L5: Disc bulge and facet joint arthropathy result in mild spinal canal and mild to moderate bilate ral neural foraminal stenosis. L5-S1: The disc is rounded posterior morphology without significant spinal canal stenosis. Facet join t arthropathy with mild neural foraminal stenosis. No significant spinal canal or neural foraminal stenosis in the remainder of the visualized levels. Other findings: Left renal simple appearing cyst. Mild atherosclerotic arterial vasculature. IMPRESSION: 1. Acute/subacute compression fracture of L4 vertebral body with at least 25% height loss. There may be a small epidural hematoma at this level. 2. L3-L4 severe spinal canal stenosis partially due to #1 and also degenerative facet arthropathy. A Yellow level critical message alert has been initiated for Grecia Araujo DO via the [employer] Critical Results System on 09/10/2022 12:07 PM. This message alert has been sent to Grecia hunter DO via the preferences provided by the clinician for the receipt of Radiology Critical Findings. Message ID [id number].
== END | disposition home or self-care (01) ==
LOC: RADMRIMAIN 16:20
PROVIDERS: ATTEND Family Medicine
DX: M51.36 Other intervertebral disc degeneration, lumbar region (principal); M47.816 Spondylosis without myelopathy or radiculopathy, lumbar region; M48.061 Spinal stenosis, lumbar region without neurogenic claudication; M48.56XA Collapsed vertebra, not elsewhere classified, lumbar region, initial encounter for fracture; M43.9 Deforming dorsopathy, unspecified
CPT/HCPCS: 72158; A9585

== ENCOUNTER → 2022-11-19 | Outpatient (CLI) | payer MEDICARE ==
[2022-11-19 13:14] LABS: INR 0.9 (<1.2); Partial Thromboplastin Time 26.6 sec (22.0-30.0); Prothrombin Time 9.5 sec (9.0-12.0)
--- NOTE | 2022-11-19 14:18 | XR ---
EXAMINATION TYPE: XR chest 2V DATE OF EXAM: 11/19/2022 COMPARISON: 04/10/2021 INDICATION: Compression fracture L1 L4, preoperative TECHNIQUE: Frontal and lateral views of the chest are obtained. FINDINGS: The heart size is normal. The pulmonary vasculature is normal. The lungs are clear. IMPRESSION: 1. No acute pulmonary process.
[2022-11-19 16:58] LABS: Basophils # (A) 0.05 X 10*3/uL (0.00-0.10); Basophils % (A) 0.8 %; Eosinophils # (A) 0.05 X 10*3/uL (0.04-0.35); Eosinophils % (A) 0.8 %; HCT 38.1 % (37.2-46.3); HGB 12.3 d/dL (12.0-15.0); Lymphocytes # (A) 2.87 X 10*3/uL (0.90-5.00); Lymphocytes % (A) 46.2 %; MCH 26.5 pg (27.0-32.0); MCHC 32.3 d/dL (32.0-37.0); MCV 81.9 FL (80.0-97.0); Mean Platelet Volume 9.1 FL (9.5-12.2); Monocytes # (A) 0.56 X 10*3/uL (0.20-1.00); NRBC Per 100 WBC 0 X 10*3/uL (0.00-0.01); Neutrophils # (A) 2.66 X 10*3/uL (1.80-7.70); Neutrophils % (A) 42.9 %; Platelet Count 408 X 10*3/uL (140-440); RBC 4.65 X 10*6/uL (4.10-5.20); RDW 18.6 % (11.5-14.5); WBC 6.21 X 10*3/uL (4.50-10.00)
[2022-11-19 19:35] LABS: Appearance,Urine Cloudy (Clear); Bilirubin,Urine Negative (Negative); Blood,Urine Negative (Negative); Color,Urine Yellow (Yellow); Ketones,Urine Negative (Negative); Nitrite,Urine Positive (Negative); PH, Urine 6.5; Specific Gravity,Urine 1.013 (1.001-1.030); Urobilinogen,Urine 0.2 E.U./DL
[2022-11-19 20:02] LABS: Bacteria,Urine 1+ (None Seen)
[2022-11-19 22:03] LABS: ALT 13 U/L (8-44); AST 20 U/L (13-35); Albumin 4.5 d/dL (3.8-4.9); Albumin/Globulin Ratio 2.25 Ratio (1.60-3.17); Alkaline Phosphatase 141 U/L (41-126); Blood Urea Nitrogen 6.4 mg/dL (9.0-27.0); Carbon Dioxide 26.1 mmol/L (21.6-31.8); Chloride 96 mmol/L (96-109); Glucose 100 mg/dL (70-110); Potassium 3.8 mmol/L (3.5-5.5); Sodium 134 mmol/L (135-145); Total Bilirubin 0.3 mg/dL (0.3-1.2); Total Protein 6.5 d/dL (6.2-8.2)
== END | disposition home or self-care (01) ==
LOC: LABPAT 11:56
PROVIDERS: ATTEND Orthopaedic Surgery Orthopaedic Surgery of the Spine
DX: Z01.818 Encounter for other preprocedural examination (principal); I49.1 Atrial premature depolarization; M48.56XA Collapsed vertebra, not elsewhere classified, lumbar region, initial encounter for fracture; R94.31 Abnormal electrocardiogram [ECG] [EKG]
CPT/HCPCS: 71046; 80053; 81001; 85025; 85610; 85730; 93005

== ENCOUNTER → 2022-11-27 | Outpatient (CLI) | payer MEDICARE ==
[2022-11-27 19:52] LABS: Appearance,Urine Clear (Clear); Bilirubin,Urine Negative (Negative); Blood,Urine Negative (Negative); Color,Urine Yellow (Yellow); Ketones,Urine Negative (Negative); Nitrite,Urine Negative (Negative); Specific Gravity,Urine 1.008 (1.001-1.030); Urobilinogen,Urine 0.2 E.U./DL
== END | disposition home or self-care (01) ==
LOC: LABPAT 12:45
PROVIDERS: ATTEND Orthopaedic Surgery Orthopaedic Surgery of the Spine
DX: Z01.812 Encounter for preprocedural laboratory examination (principal); M48.50XA Collapsed vertebra, not elsewhere classified, site unspecified, initial encounter for fracture
CPT/HCPCS: 81003

== ENCOUNTER 2022-11-30 13:14 | Day surgery (SDC) | payer MEDICARE ==
[~2022-11-30 13:14] MED LIST: DEXAMETHASONE SOD PHOSPHATE 4 MG/ML 1 ML VIAL IV ONE; HYDROmorphone 0.5 MG/0.5 ML SYRINGE IVP PRN; LACTATED RINGERS 1,000 ML IV SCH; LIDOCAINE 1% (10MG/ML) FOR IV START INTRADERMA PRN; MIDAZOLAM 2 MG/2 ML VIAL IV PRN; ONDANSETRON 4 MG/2 ML VIAL IVP ONE
[2022-11-30 13:53] LABS: Glucose,Whole Blood 107 mg/dL (70-110)
[2022-11-30] MEDS ORDERED: IOPAMIDOL M200 10 ML VIAL MISCELLANE ONE (15:03)
[2022-11-30] MEDS ORDERED: LIDOCAINE 0.5%-EPI 1:200,000 50 ML VIAL SQ ONE (15:03)
[2022-11-30] MEDS ORDERED: BENZOCAINE/MENTHOL LOZENG 1 EACH LOZENGE MUCOUS MEM PRN (16:07)
[2022-11-30] MEDS ORDERED: HYDROcodone/APAP 5-325MG 1 EACH TAB PO PRN ×2 (16:07→16:09)
[2022-11-30] MEDS ORDERED: CYCLOBENZAPRINE 5 MG TAB PO PRN (16:07)
[2022-11-30] MEDS ORDERED: HYDROmorphone 0.5 MG/0.5 ML SYRINGE IVP PRN (16:07)
[2022-11-30] MEDS ORDERED: KETOROLAC 15 MG/ML 1 ML VIAL IVP PRN (16:07)
[2022-11-30] MEDS ORDERED: IBUPROFEN 600 MG TAB PO PRN (16:07)
[2022-11-30] MEDS ORDERED: ACETAMINOPHEN TAB 325 MG TAB PO PRN (16:07)
[2022-11-30] MEDS ORDERED: SENNOSIDES-DOCUSATE SODIUM 1 EACH TAB PO PRN (16:07)
[2022-11-30] MEDS ORDERED: ONDANSETRON 4 MG/2 ML VIAL IVP PRN (16:07)
[2022-11-30] MEDS ORDERED: SODIUM CHLORIDE 0.9% 1,000 ML IV SCH (16:15)
[2022-11-30 16:20] VITALS: TEMP 97.2
--- NOTE | 2022-11-30 16:26 | P.OP ---
Date of Procedure: 11/30/22 Preoperative Diagnosis: L1 and L4 vertebral compression fractures, acute and subacute traumatic lumbar back pain Failed conservative treatment Postoperative Diagnosis: Same Anesthesia: GETA Pathology: other (L1 and L4 vertebral body biopsy sent to pathology separately) Condition: stable Disposition: PACU Description of Procedure: BRIEF OPERATIVE NOTE Preoperative Diagnosis: L1 and L4 vertebral compression fractures, acute and subacute traumatic lumbar back pain Failed conservative treatment Postoperative Diagnosis: Same Procedure: Kyphoplasty of L1 as well as L4 Vertebral body biopsy L1 and L4 Use of biplanar fluoroscopic guidance Surgeon: Dr. Nixon Lead Software Developer: Harsh Del Valle is present throughout the entire the case persistence during positioning, dissection, exposure, visualization, and all crucial elements of the case as well as closure. Anesthesia: General anesthesia Estimated blood loss: Less than 20 mL Specimen: Vertebral body biopsy of L1 and L4 sent to pathology in formalin Complications: None apparent Components implanted: Bone cement Disposition: To recovery room in good stable condition. OPERATIVE INDICATIONS The patient has been having issues in their back ever since sustaining an injury. She was initially being treated L1 compression fracture and was moving slowly in her progress. She was considering kyphoplasty and in the interim was found have another compression fracture at L1. This caused her further pain and debility and we again discussed possibly surgical intervention and conservative management. The patient has been through conservative treatment. They attempted conservative care with bracing however they're not having any benefit despite brace use. They continue to have significant pain and debility due to their fracture. We discussed various treatment options including surgery, and the patient wishes to proceed with surgery We discussed the risk, patient's alternatives and benefits of surgery including but not limited to, risk of bleeding risk of infection, risk of need for further surgery, risk of decreased, loss of motion, loss of function, cement extravasation, nerve damage, paralysis, heart attack, blindness and . OPERATIVE SUMMARY After discussing all the risks, patient alternatives and benefits at length, the patient elected to proceed with surgical intervention, signed informed consent, and presented for their procedure. The patient was seen and examined in the preoperative holding area and the surgical site was marked. The patient was given antibiotics and brought to the operating room. The patient was sedated and intubated by anesthesia in standard fashion. The patient was positioned on to the operating room table in a prone position on the appropriate well-padded and well molded bilateral chest rolls. We were careful to pad any bony prominences and pressure points. We were careful to maintain the patient's cervical spine and good neutral alignment and position throughout. We used 2 C-arm machines to establish biplanar fluoroscopic guidance in AP and lateral positions. We were able to localize the fractures appropriately at L1 and L4. The patient was prepped and draped in a normal standard fashion. An appropriate timeout and keystone protocol performed. We were able to proceed with the surgery. The local wound area was infiltrated with local anesthetic. An incision was made over the lateral aspect of the pedicle over the appropriate levels with a small 2 mm stab incision. Intraoperative fluoroscopy was taken which showed a marker at the appropriate level both L1 and L4. With the appropriate level positively confirmed, I was able to position a sharp trocar over the lateral aspect of the pedicle. I wAs able to advance the trocar into the pedicle and into the posterior aspect of vertebral body being careful to avoid penetration cephalad caudad or medially both at L4 and L1. The trocar was placed appropriately into the posterior aspect of vertebral body at the appropriate levels at L4 and L1. This was confirmed with C-arm guidance. With the trocar intact I was then able to take a bone biopsy with a biopsy punch or a bony drill. The biopsy specimen was passed off to be sent to pathology in formalin Separately at L1 I was then able to place the kyphoplasty balloon within the vertebral body. The position was checked on C-arm. I was able to inflate the balloon under low pressure and visualization with C-arm. The balloon was well enclosed within the vertebral body. The cement was prepared. With the cement at appropriate working condition the balloons were deflated and removed. I was able to place bony cement with trocar with the cement delivery device under low pressure. It had good fill within the vertebral body. There is no evidence of any extravasation of the cement posteriorly toward the canal. At L1 we had approximately 6 mL of bone cement at L4 with approximately 5 mL of bone cement The cement was well contained at the appropriate levels. The cement was allowed to cure appropriately. The trochars removed and final images were taken on C- arm. This showed the cement at the appropriate levels at L1 and L4. We were able to proceed with closure. The wound was cleaned and dried and dressed with the appropriate dressing. The drapes were broken down. The patient was gently rolled back onto their hospital bed being careful to maintain their cervical spine and good neutral alignment and position. They were woken up by anesthesia, extubated, and brought to the recovery room in good stable condition. The patient will be admitted to the hospital for observation and for appropriate postoperative care, medical management and monitoring. We will continue to follow them closely about the postoperative course.
[2022-11-30 16:29] VITALS: RESP 16
[2022-11-30 17:24] VITALS: BP 109/79; PULSE 90
--- NOTE | 2022-11-30 17:46 | FL ---
Intraoperative/procedural fluoroscopic services were provided. Total fluoroscopy time is 65 seconds w ith a total of 8 submitted images to PACS. Please see the operative/procedural note for further detai ls. DAP: 497 cGycm2
[2022-11-30] MEDS ORDERED: NON FORMULARY DRUG (Cefuroxime Axetil [Ceftin] 500 MG Tablet) PO SCH (21:00)
[2022-11-30] MEDS ORDERED: MIDODRINE HCL 2.5 MG PO SCH (22:00)
[2022-12-01] MEDS ORDERED: PANTOPRAZOLE 40 MG TABLET PO SCH (09:00)
== END 2022-11-30 17:47 | disposition home or self-care (01) ==
LOC: OR 13:14
PROVIDERS: ATTEND Orthopaedic Surgery Orthopaedic Surgery of the Spine
DX: S32.010A Wedge compression fracture of first lumbar vertebra, initial encounter for closed fracture (principal); S32.040A Wedge compression fracture of fourth lumbar vertebra, initial encounter for closed fracture; M47.816 Spondylosis without myelopathy or radiculopathy, lumbar region; M48.062 Spinal stenosis, lumbar region with neurogenic claudication; F17.210 Nicotine dependence, cigarettes, uncomplicated; K21.9 Gastro-esophageal reflux disease without esophagitis; Z86.59 Personal history of other mental and behavioral disorders; Z83.3 Family history of diabetes mellitus; Z79.899 Other long term (current) drug therapy; X58.XXXA Exposure to other specified factors, initial encounter
CPT/HCPCS: 86900; 86901; 86850; 72100; 22514; 22515; 20225; J1100; J0690; J2405; Q9966; 88307; 88311